=== PATIENT | female | born 1945 | race Caucasian/White ===

== ENCOUNTER 2022-10-07 10:40 | Emergency (ER) | payer MEDICARE | END 2022-10-07 14:00 | disposition home or self-care (01) | LOC: CSHERS 10:40 | DX: S32.591A Other specified fracture of right pubis, initial encounter for closed fracture (principal); R07.89 Other chest pain; W19.XXXA Unspecified fall, initial encounter | CPT/HCPCS: 71250; 72192; 93005 ==

== ENCOUNTER 2023-04-01 10:06 | Outpatient (CLI) | payer MEDICARE | END 2023-04-01 10:07 | disposition home or self-care (01) | LOC: CSHMAMMO 10:06 | PROVIDERS: ATTEND Internal Medicine | DX: Z12.31 Encounter for screening mammogram for malignant neoplasm of breast (principal); Z80.3 Family history of malignant neoplasm of breast | CPT/HCPCS: 77063; 77067 ==

== ENCOUNTER 2024-04-13 11:06 | Outpatient (CLI) | payer MEDICARE | END 2024-04-13 11:07 | disposition home or self-care (01) | LOC: CSHMAMMO 11:06 | PROVIDERS: ATTEND Internal Medicine | DX: Z12.31 Encounter for screening mammogram for malignant neoplasm of breast (principal); M81.0 Age-related osteoporosis without current pathological fracture; M85.851 Other specified disorders of bone density and structure, right thigh; M85.852 Other specified disorders of bone density and structure, left thigh; Z80.3 Family history of malignant neoplasm of breast | CPT/HCPCS: 77063; 77067; 77080 ==

== ENCOUNTER 2025-04-14 08:51 | Outpatient (CLI) | payer MEDICARE | END 2025-04-14 08:52 | disposition home or self-care (01) | LOC: CSHMAMMO 08:51 | PROVIDERS: ATTEND Internal Medicine | DX: Z12.31 Encounter for screening mammogram for malignant neoplasm of breast (principal); Z80.3 Family history of malignant neoplasm of breast | CPT/HCPCS: 77063; 77067 ==